=== PATIENT | female | born 1965 | race Caucasian/White ===

== ENCOUNTER → 2016-04-15 | Day surgery (SDC) | payer OTHER ==
[~2016-04-15] VITALS: Ht 160 cm; Wt 136.1 kg
[~2016-04-15] MED LIST: IBUP-1114 PO; LEVO100T5 PO; LISI20TA3 PO; LR 1,000 ML IV SCH; MAGN30TA2 PO; METF500T PO; MULT1TAB10 PO; PROPOFOL 200 MG/20 ML VIAL As Ordered ONE; SIMV20TA2 PO; VITA50003 PO; [UNRECOGNIZED DRUG - CODE] PO
[2016-04-15 09:35] VITALS: BP 115/58
--- NOTE | 2016-04-18 07:24 | ROOR ---
Patient Name: Ree Mason Procedure Date: 04/15/2016 8:10 AM Date of : 1965 Age: 50 Gender: Female Note Status: Finalized Procedure: Colonoscopy Indications: Screening for colorectal malignant neoplasm Providers: Daron Castillo DO Referring MD: Caitlin Richey DO Requesting Provider: Medicines: Propofol per Anesthesia Complications: No immediate complications. Procedure: Pre-Anesthesia Assessment: - Prior to the procedure, a History and Physical was performed, and patient medications and allergies were reviewed. The patient is competent. The risks and benefits of the procedure and the sedation options and risks were discussed with the patient. All questions were answered and informed consent was obtained. Patient identification and proposed procedure were verified by the physician, the nurse, the traffic maintenance officer and the certified composites technician in the procedure room. Mental Status Examination: alert and oriented. Airway Examination: normal oropharyngeal airway and neck mobility. Respiratory Examination: clear to auscultation. CV Examination: normal. Prophylactic Antibiotics: The patient does not require prophylactic antibiotics. Prior Anticoagulants: The patient has taken no previous anticoagulant or antiplatelet agents. ASA Grade Assessment: III - A patient with severe systemic disease. After reviewing the risks and benefits, the patient was deemed in satisfactory condition to undergo the procedure. The anesthesia plan was to use monitored anesthesia care (MAC). Immediately prior to administration of medications, the patient was re-assessed for adequacy to receive sedatives. The heart rate, respiratory rate, oxygen saturations, blood pressure, adequacy of pulmonary ventilation, and response to care were monitored throughout the procedure. The physical status of the patient was re-assessed after the procedure. The Colonoscope was introduced through the anus and advanced to the cecum, identified by the appendiceal orifice, ileocecal valve and palpation. The colonoscopy was performed without difficulty. The patient tolerated the procedure well. Findings: The entire examined colon appeared normal on direct and retroflexion views. Impression: - The entire examined colon is normal on direct and retroflexion views. - No specimens collected. Recommendation: - Patient has a contact number available for emergencies. The signs and symptoms of potential delayed complications were discussed with the patient. Return to normal activities tomorrow. Written discharge instructions were provided to the patient. - Repeat colonoscopy in 5-10 years for screening purposes. - Return to my office PRN. Daron Castillo DO 04/15/2016 8:51:27 AM This report has been signed electronically. Number of Addenda: 0 Note Initiated On: 04/15/2016 8:10 AM Estimated Blood Loss: Estimated blood loss: none.
== END ==
LOC: M SDC 07:10
PROVIDERS: ATTEND Surgery
DX: Z12.11 Encounter for screening for malignant neoplasm of colon (principal); I10 Essential (primary) hypertension; E11.9 Type 2 diabetes mellitus without complications; E78.00 Pure hypercholesterolemia, unspecified; E03.9 Hypothyroidism, unspecified; D69.3 Immune thrombocytopenic purpura; Z79.899 Other long term (current) drug therapy; Z79.84 Long term (current) use of oral hypoglycemic drugs

== ENCOUNTER → 2017-03-14 | Outpatient (CLI) | payer OTHER ==
[~2017-03-14] MED LIST changes: -LR 1,000 ML IV SCH; -METF500T PO; +METF500T13 PO; -PROPOFOL 200 MG/20 ML VIAL As Ordered ONE; +VITA1CAP40 PO; -VITA50003 PO
--- NOTE | 2017-03-14 10:56 | REPMRS ---
Patient History The patient states she had a clinical breast exam in 01/2017. Patient had first child at age 31. Family history of prostate cancer in paternal grandfather at age 75 and pancreatic cancer in paternal grandmother. Took hormonal contraceptives for 29 years. Taking unspecified hormones for 6 years. Digital Woman Screen Mammo: March 14, 2017 - Exam #: [id number] Bilateral CC and MLO view(s) were taken. Technologist: Beti Mills, Technologist Prior study comparison: February 02, 2016, digital woman screen mammo performed at [facility] to [facility]. August 03, 2014, digital woman screen mammo performed at [facility]. June 23, 2012, bilateral bilat screen digital mammo, performed at [facility] ([facility]). FINDINGS: The breast tissue is almost entirely fat. There has been no change in the appearance of the mammogram from the prior studies. There is no interval development of dominant mass, architectural distortion, or clustered microcalcification typical of malignancy. ASSESSMENT: BI-RADS/ACR category 1 mammogram. Negative. Recommendation Routine screening mammogram of both breasts in 1 year (for women over age 40). This mammogram was interpreted with the aid of an FDA-approved computer-aided dectection system. Electronically Signed By: Rober Mae MD 03/14/17 0494
== END ==
LOC: M WHC 09:20
PROVIDERS: ATTEND Obstetrics & Gynecology Gynecology
DX: Z12.31 Encounter for screening mammogram for malignant neoplasm of breast (principal); Z92.0 Personal history of contraception

== ENCOUNTER → 2017-03-20 | Outpatient (REF) | payer OTHER ==
[2017-03-20 16:43] LABS: REASON FOR REVIEW COMPREHENSIVE REVIEW; SLIDE REVIEW Report; SOURCE PERIPHERAL SMEAR
== END ==
LOC: M LAB REF 15:42
DX: D47.3 Essential (hemorrhagic) thrombocythemia (principal)
CPT/HCPCS: 81402

== ENCOUNTER → 2018-02-14 | Outpatient (CLI) | payer OTHER ==
[2018-02-16 10:18] LABS: LUTEINIZING HORMONE 7.3 mIU/mL
[2018-02-16 10:18] LABS: FOLLICLE STIMULATING HORMONE 15.8 mIU/mL
== END ==
LOC: M LAB 10:37
DX: E66.9 Obesity, unspecified (principal)
CPT/HCPCS: 83001

== ENCOUNTER → 2018-03-18 | Outpatient (CLI) | payer OTHER ==
[~2018-03-18] MED LIST changes: +CALTCHW5 PO; +CALTTAB6 PO; +FISH1000 PO; +FISH120016 PO; +IBUP-1022 PO; +MAGN400C PO; +MAGN400T2 PO; +NORCOTAB PO; +VITA10006 PO; -VITA1CAP40 PO; +VITA50005 PO; +VITMTA PO
--- NOTE | 2018-03-18 14:55 | REPMRS ---
Patient History The patient states she had a clinical breast exam in 02/08 Patient had first child at age 31. Family history of prostate cancer at age 75 in paternal grandfather, pancreatic cancer in paternal grandmother. Taking hormonal contraceptives for 30 years. Took unspecified hormones for 6 years. Digital Woman Screen Mammo: March 18, 2018 - Exam #: [id number] Bilateral CC and MLO view(s) were taken. Technologist: Imelda Ward, Technologist Prior study comparison: March 14, 2017, digital woman screen mammo performed at [facility]. February 02, 2016, digital woman screen mammo performed at [facility]. August 03, 2014, digital woman screen mammo performed at [facility]. FINDINGS: There are scattered fibroglandular densities. There has been no change in the appearance of the mammogram from the prior studies. There is a mild amount of scattered fibroglandular density which is fairly symmetric. There is no interval development of dominant mass, architectural distortion, or clustered microcalcification suggestive of malignancy. 3-D tomosynthesis shows no additional findings. Assessment: BI-RADS/ACR category 1 mammogram. Negative. Recommendation Routine screening mammogram of both breasts in 1 year (for women over age 40). This patient's Lifetime Breast Cancer RIsk is estimated at 11.6 %. This mammogram was interpreted with the aid of an FDA-approved computer-aided dectection system. Electronically Signed By: Rober Mae MD 03/18/18 [id number]
== END ==
LOC: M WHC 13:07
PROVIDERS: ATTEND Obstetrics & Gynecology Gynecology
DX: Z12.31 Encounter for screening mammogram for malignant neoplasm of breast (principal); Z80.0 Family history of malignant neoplasm of digestive organs; Z80.42 Family history of malignant neoplasm of prostate

== ENCOUNTER 2018-03-26 18:07 | Inpatient (IN) | payer OTHER ==
[~2018-03-26] VITALS: Ht 160 cm; Wt 134.1 kg
[~2018-03-26 18:07] MED LIST changes: -CALTTAB6 PO; -FISH1000 PO; -IBUP-1022 PO; -MAGN400T2 PO; -NORCOTAB PO; -VITA10006 PO; -VITMTA PO
[2018-03-26] MEDS ORDERED: ONDANSETRON 4MG/2ML VIAL (J2405) IV ONE (19:30)
[2018-03-26] MEDS ORDERED: NS 1,000 ML IV ONE (19:30)
[2018-03-26 20:29] LABS: BASO # 0.1 10^3/uL (0.0-0.2); BASO % 0.3 % (0.0-1.0); EOS % 0.2 % (0.0-3.0); HEMATOCRIT 45.3 % (36.0-47.0); HEMOGLOBIN 15.3 g/dl (12.0-15.5); LYMPH # 1.2 10^3/uL (1.5-4.5); LYMPH % 6.7 % (24.0-44.0); MEAN CORPUSCULAR HEMOGLOBIN 27.5 pg (27.0-33.0); MEAN CORPUSCULAR HGB CONC 33.8 g/dl (32.0-36.5); MEAN CORPUSCULAR VOLUME 81.5 fl (80.0-96.0); MONO # 0.9 10^3/uL (0.0-0.8); MONO % 4.8 % (0.0-5.0); NEUTROPHILS # 15.9 10^3/uL (1.8-7.7); NEUTROPHILS % 87.7 % (36.0-66.0); RED BLOOD COUNT 5.56 10^6/uL (4.00-5.40)
[2018-03-26 20:31] LABS: PLTBLUE- EDTA FREE CALC 293 K/mm3 (172-450)
[2018-03-26] MEDS: MORPHINE 2 MG/ML 1ML SYRINGE (J2270) IV PRN ×2 (20:31→22:58)
[2018-03-26 20:35] LABS: WHITE BLOOD COUNT 18.1 10^3/uL (4.0-10.0)
[2018-03-26 20:36] LABS: PLTBLUE- EDTA FREE MACHINE 266 10^3/uL (172-450)
[2018-03-26 20:57] LABS: ALBUMIN 3.1 GM/DL (3.2-5.2); ALT/SGPT 31 U/L (12-78); BILIRUBIN,DIRECT 0.2 MG/DL (0.0-0.2); BILIRUBIN,TOTAL 0.6 MG/DL (0.2-1.0); BLOOD UREA NITROGEN 6 MG/DL (7-18); CALCIUM LEVEL 8.6 MG/DL (8.5-10.1); CARBON DIOXIDE LEVEL 29 MEQ/L (21-32); CHLORIDE LEVEL 98 MEQ/L (98-107); CREATININE FOR GFR 0.68 MG/DL (0.55-1.30); GLOMERULAR FILTRATION RATE > 60.0 (>51); GLUCOSE, FASTING 122 MG/DL (70-100); POTASSIUM SERUM 3.5 MEQ/L (3.5-5.1); SODIUM LEVEL 136 MEQ/L (136-145); TOTAL PROTEIN 7.8 GM/DL (6.4-8.2)
[2018-03-26] MEDS ORDERED: ISOVUE-370 76% 100ML VIAL (Q9967) As Ordered ONE (20:59)
--- NOTE | 2018-03-26 22:42 | REPVR ---
EXAM: CT Abdomen and Pelvis With Contrast EXAM DATE/TIME: 03/26/18 (9:10pm) CLINICAL HISTORY: 52 year old female. Known incisional hernia, with worsening pain. Possible incarceration. TECHNIQUE: Axial computed tomography images of the abdomen and pelvis with intravenous contrast. All CT scans at this facility use at least one of these dose optimization techniques: automated exposure control; mA and/or kV adjustment per patient size (includes targeted exams where dose is matched to clinical indication); or iterative reconstruction. Coronal and sagittal reformatted images were created and reviewed. CONTRAST: 100 ml of Isovue 370 administered intravenously COMPARISON: No relevant prior studies available FINDINGS: Lower thorax: No acute findings. No pleural effusions. ABDOMEN: Liver: Normal. No solid mass. Gallbladder and bile ducts: Normal. No calcified stones. No ductal dilatation. Pancreas: Normal. No ductal dilatation. Spleen: Most likely S/P splenectomy. This needs correlation. Adrenals: Normal. No mass. Kidneys and ureters: Normal. No hydronephrosis. Stomach and bowel: Previous ventral hernia repair, with post-operative changes. Incisional hernia, in the anterior abdominal wall. The hernia sac contains inflamed fat and a segment of thickened, nondistended transverse colon. More proximal colon (right colon and proximal transverse colon) is distended, filled with fecal debris and air. Distal colonic loops are decompressed. Mild inflammatory changes are noted adjacent to the distended transverse colon, close to the hernia site. Appendix: Most likely S/P appendectomy. PELVIS: Bladder: Distended urinary bladder. No stones nor mass. Reproductive: Enlarged, bulky uterus (probable fibroid uterus). ABDOMEN and PELVIS: Intraperitoneal space: Normal. No free air. No significant fluid collection. Bones/joints: No acute fracture nor dislocation. Soft tissues: Unremarkable. Vasculature: Normal. No abdominal aortic aneurysm. Lymph nodes: Normal. No enlarged lymph nodes. IMPRESSION: Colonic obstruction (at the mid transverse colon level), secondary due to an incisional hernia, which contains a thickened, inflamed segment of mid transverse colon. Incarceration is suspected. Surgical consultation and close follow-up are suggested. No abscess. No free air. Probable previous appendectomy and splenectomy. Probable bulky, fibroid uterus. Electronically signed by: Isidra Mckeon On 03/26/2018 22:42:03 PM
[2018-03-26] MEDS ORDERED: NS 1,000 ML IV SCH (23:00)
[2018-03-27] VITALS (10 sets, daily range): BP systolic 112–140; BP diastolic 56–76
[2018-03-27] MEDS ORDERED: MORPHINE 4 MG/ML 1ML VIAL/SYRINGE (J2270) IV PRN ×2
--- NOTE | 2018-03-27 00:05 | REP ---
Clinical: Preoperative assessment . Comparison: None . Findings: The mediastinum and cardiac silhouette are stable and within normal limits for portable technique. The lung holloway are clear without acute consolidation, effusion, or pneumothorax. Skeletal structures are intact. Impression: No acute cardiopulmonary process appreciated. Electronically Signed by Hector Gates MD 03/26/2018 11:57 P
[2018-03-27] MEDS ORDERED: BUPIVACAINE HCL 0.25% 30 ML VIAL As Ordered ONE (00:06)
[2018-03-27] MEDS ORDERED: MAGN400T2 PO (00:12)
[2018-03-27] MEDS ORDERED: FISH1000 PO (00:12)
[2018-03-27] MEDS ORDERED: VITMTA PO (00:12)
[2018-03-27] MEDS ORDERED: CALTTAB6 PO (00:12)
[2018-03-27] MEDS ORDERED: VITA10006 PO (00:13)
[2018-03-27] MEDS ORDERED: ceFAZolin 2 GM/D5W 50 ML IV BAG (J0690 PER 500MG) As Ordered ONE (00:29)
[2018-03-27] MEDS ORDERED: MIDAZOLAM INJ 2 MG/2 ML VIAL (J2250) As Ordered ONE (01:23)
[2018-03-27] MEDS ORDERED: LIDOCAINE 2% INJ 100 MG/5 ML SDV (FOR ANES.) As Ordered ONE (01:23)
[2018-03-27] MEDS ORDERED: fentaNYL 250 MCG/5 ML INJECTION (J3010) As Ordered ONE (01:23)
[2018-03-27] MEDS ORDERED: PROPOFOL 200 MG/20 ML VIAL As Ordered ONE (01:23)
[2018-03-27] MEDS ORDERED: ROCURONIUM BROMIDE 50 MG/5 ML VIAL As Ordered ONE ×2 (01:23→01:48)
[2018-03-27] MEDS ORDERED: SUCCINYLCHOLINE 100 MG/5 ML SYRINGE (J0330) As Ordered ONE (01:33)
[2018-03-27] MEDS ORDERED: dexameTHASONE 4 MG/ML 1ML VIAL (J1100) As Ordered ONE (01:34)
[2018-03-27] MEDS ORDERED: ONDANSETRON 4MG/2ML VIAL (J2405) As Ordered ONE (02:09)
[2018-03-27] MEDS ORDERED: NEOSTIGMINE 10 MG/10 ML VIAL (J2710) As Ordered ONE (02:09)
[2018-03-27] MEDS ORDERED: GLYCOPYRROLATE INJ 0.2 MG/ML 2 ML VIAL As Ordered ONE (02:09)
[2018-03-27] MEDS ORDERED: KETOROLAC 60 MG/2 ML VIAL (J1885) As Ordered ONE (02:09)
[2018-03-27] MEDS ORDERED: BUPIVACAINE LIPOSOME/PF 1.3% 20ML VIAL (13.3MG/ML)(EXPAREL)(C9290 PER1MG) As Ordered ONE (02:18)
[2018-03-27] MEDS ORDERED: BUPIVACAINE HCL 0.25% 10 ML VIAL As Ordered ONE (02:54)
[2018-03-27] MEDS ORDERED: PHENYLephrine HCL 500 MCG/5 ML (100MCG/ML) SYRINGE (J2370) As Ordered ONE (03:22)
[2018-03-27] MEDS ORDERED: LR 1,000 ML IV SCH (04:00)
[2018-03-27] MEDS ORDERED: ONDANSETRON 4MG/2ML VIAL (J2405) IV PRN ×2 (04:00)
[2018-03-27] MEDS ORDERED: KETOROLAC 30 MG/ML VIAL (J1885) IV PRN (04:00)
[2018-03-27] MEDS ORDERED: PERCOCET 5MG/325MG TAB PO PRN (04:00)
[2018-03-27] MEDS ORDERED: fentaNYL 100 MCG/2 ML INJECTION (J3010) IV PRN (04:00)
[2018-03-27] MEDS ORDERED: METOCLOPRAMIDE INJ 10MG/2ML VIAL (J2765) IV PRN (04:00)
[2018-03-27] MEDS ORDERED: METOCLOPRAMIDE INJ 10MG/2ML VIAL (J2765) As Ordered ONE (04:09)
[2018-03-27] MEDS: LR 1,000 ML IV SCH ×2 (05:12→12:29)
[2018-03-27] MEDS: LEVOTHYROXINE 100MCG TABLET (0.1MG) PO SCH (06:09)
[2018-03-27] MEDS: hydroCHLOROthiazide 25 MG TAB PO SCH (09:11)
[2018-03-27] MEDS: LISINOPRIL 20 MG TAB PO SCH (09:11)
--- NOTE | 2018-03-27 09:25 | ECGEPIP ---
Stationary ECG Study [facility] - ED Test Date: 2018-03-26 Pat Name: DARIN RIGGINS Department: Room: - Gender: F Cable Installer: ronald : 1965 Requested By: JULIO CESAR ECKERT Order Number: [id number] Reading MD: Marilou Saini Measurements Intervals [place] Rate: 89 P: 52 MO: 149 QRS: 12 QRSD: 88 T: 11 QT: 365 QTc: 444 Interpretive Statements SINUS RHYTHM WITH SINUS ARRHYTHMIA MODERATE ST DEPRESSION NO PRIOR FOR COMPARISON Electronically Signed On 03-27-2018 9:25:33 EST by Marilou Saini
[2018-03-27] MEDS: ACETAMINOPHEN TAB 650MG DOSE (2X325MG) PO PRN ×2 (14:33→19:58)
[2018-03-27] MEDS ORDERED: SLF 3 ML SYR IV PRN (14:45)
[2018-03-27] MEDS ORDERED: SIMVASTATIN 20 MG TAB PO SCH (21:00)
[2018-03-27] MEDS ORDERED: MULTIVITAMINS/MINERALS THERAP 1 TAB PO SCH (21:00)
--- NOTE | 2018-03-27 21:13 | IPN ---
DATE: 03/27/2018 HISTORY The patient was admitted late last night and underwent a laparoscopic repair of an incarcerated ventral incisional hernia with mesh. She had a portion of her transverse colon in the hernia with evidence for obstruction proximal to this. She was having significant crampy pains. Her hernia was repaired by closing the defect primarily and placing a 12 cm Parietex patch laparoscopically. We finished at about 4 o'clock in the morning today. The patient has been doing well. She did have Exparel injected at the time of surgery. She has been taking only Tylenol for pain and tolerating liquids well so she was advanced to a regular diet late this afternoon. Vital signs: Show that she has been afebrile with a pulse in the 70s to low 90s. Her blood pressure is good with a normal room air oxygen saturation. Intake and output shows that she has had 4400 in total today with 1450 out. PHYSICAL EXAMINATION The patient is sitting up in the chair at the bedside. She appears fairly comfortable. Skin: Is warm and dry. Heart exam shows a regular rate and rhythm. The lungs are clear. The abdomen shows fairly active bowel sounds. She has no undue tenderness. The patient has no new labs at this time. IMPRESSION The patient is doing very well now approximately 12 hours postop from her emergent laparoscopic repair of her incarcerated hernia. She has had some flatus but no bowel movement yet. She is taking liquids well and has had a couple pieces of toast. PLAN The patient will be continued on a regular diet. She was encouraged to be up ambulatory. I would anticipate that she would be ready for discharge in the next day or two at the most. BALBINA
[2018-03-27] MEDS: SLF 3 ML SYR IV SCH (21:39)
[2018-03-27] MEDS: NORCO, ANEXSIA 5/325MG TABLET (HYDROcodone/ACETAMINOPHEN) PO PRN (23:47)
[2018-03-28] VITALS: BP 121/59
[2018-03-28 04:00] VITALS: BP 122/57
[2018-03-28] MEDS: LEVOTHYROXINE 100MCG TABLET (0.1MG) PO SCH (06:24)
[2018-03-28] MEDS: SLF 3 ML SYR IV SCH (06:24)
[2018-03-28] MEDS: NORCO, ANEXSIA 5/325MG TABLET (HYDROcodone/ACETAMINOPHEN) PO PRN ×2 (06:28→10:49)
[2018-03-28 08:00] VITALS: BP 130/67
[2018-03-28 08:41] VITALS: BP 130/67
[2018-03-28] MEDS: LISINOPRIL 20 MG TAB PO SCH (08:41)
[2018-03-28] MEDS: hydroCHLOROthiazide 25 MG TAB PO SCH (08:41)
[2018-03-28] MEDS ORDERED: IBUP-1022 PO (09:45)
[2018-03-28] MEDS ORDERED: NORCOTAB PO (09:45)
[2018-03-28] MEDS: ACETAMINOPHEN TAB 650MG DOSE (2X325MG) PO PRN (10:48)
--- NOTE | 2018-03-29 15:19 | RO ---
DATE OF SURGERY: 03/27/2018 PREOPERATIVE DIAGNOSES: Incarcerated ventral incisional hernia with transverse colon obstruction. POSTOPERATIVE DIAGNOSES: Incarcerated ventral incisional hernia with transverse colon obstruction secondary to extensive adhesions. PROCEDURE PERFORMED: Laparoscopy with lysis of adhesions and reduction of incarcerated hernia and repair of incisional hernia with 12 cm Parietex patch. SURGEON: Dr. Julio Cesar Garcia CORPORATE LEGAL INTERN: ANESTHESIA: General. INDICATIONS FOR THE PROCEDURE: Patient is a 52-year-old woman who has undergone several prior abdominal procedures. She has had an appendectomy. 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 She has had a hernia repair along the midline near the umbilicus repaired with some externally applied mesh. She presented to the emergency department on 03/26/2018 with a 2-day history of worsening abdominal pain with some cramping and some nausea and vomiting. A CT scan revealed a portion of her transverse colon incarcerated within her hernia with evidence for an obstruction proximally. She is now for a laparoscopic repair of her incarcerated ventral incisional hernia. DESCRIPTION OF PROCEDURE: Operative procedure: Patient was taken to the operating room on 03/27/2018. She was placed supine on the operating table. She was placed under general endotracheal anesthesia. The patient's abdomen was prepped and draped in a sterile fashion. Initial entry into the abdomen was in the left midabdomen. 0.25% Marcaine was infiltrated at the trocar sites as needed. A short transverse incision was made at about the level of the umbilicus, and a Veress needle was inserted. After positive hanging drop test, the abdomen was inflated with carbon dioxide gas. A 5-mm port was placed over a 5 mm scope and this was advanced through the abdominal wall without difficulty. Initial inspection showed multiple adhesions of the omentum to the anterior abdominal wall extending from the right upper quadrant down along the midline and the right side of the abdomen toward the lower abdomen. Many of these were just filmy, though they seemed more involved and dense in the right midabdomen. A second 5 mm trocar was placed higher up in the left upper quadrant, and a third was placed in the left lower quadrant. Using graspers and the Harmonic scalpel, the adhesions of the omentum were peeled away from the abdominal wall extensively beginning in the upper abdomen and working inferiorly. At the umbilicus area, the patient was found to have tissue adherent up into a fascial defect slightly to the right of the midline. As this area was dissected it was clear that there was fairly dense scarring of the transverse colon to the anterior abdominal wall in this area, but the colon had apparently reduced from within the hernia at or after the patient was brought to the operating room. The scar tissue was peeled away from the abdominal wall, and the dissection was carried inferiorly freeing additional adhesions below this level from the anterior abdominal wall. A broad area was cleared around the defect. The defect was found to measure approximately 4-5 cm maximally. Inspection of the transverse colon showed that the proximal portion was somewhat dilated and distended, and the mid and distal portions were initially decompressed, but once the colon had been reduced, there appeared to be some flow of material into this area as well. A short longitudinal incision was made over the fascial defect. This was deepened through the subcutaneous tissues to the level of the fascia. A moderately large hernia sac was identified which was dissected free from surrounding subcutaneous tissues down to the fascia and this hernia sac was then excised and sent for permanent pathology. I would note that a portion of the omentum which had been peeled away from the abdominal wall appeared to have been devascularized, so this was completely dissected and set aside for removal. Once the hernia sac had been removed, the omentum was delivered through the fascial defect and removed and sent as a second specimen called portion of the omentum. The fascial edges were trimmed slightly to healthy tissue. Hemostasis was assured with cautery. A 12 cm Parietex patch was selected. This was marked along the midline. A #1-0 Ethibond suture was placed at the midpoint of the fascial defect approximating this longitudinally, and as this suture was placed a small bite was taken of the center of the Parietex mesh. The mesh was then reduced into the abdomen with the nonadherent side facing the bowel and the suture was tied down. The remainder of the fascial defect was closed with additional sutures of #1-0 Ethibond. The abdomen was then reinflated with carbon dioxide but only to a pressure of 8 mmHg. The laparoscope was again inspected. The mesh was flattened on the anterior abdominal wall and then tacked in place with a Securestrap tacking devices. A total of 50 Securestrap devices were used to hold the mesh. These were placed circumferentially around the outer edge of the mesh as well as along the midline and with multiple tacks also holding the mesh diffusely to the anterior abdominal wall. There was no significant bleeding identified. The final application looked excellent. 20 mL of Exparel were mixed with 20 mL of 0.25% Marcaine, and this was infiltrated widely into the anterior abdominal wall over the area of the mesh placement and along the trocar sites. Final inspection revealed no bleeding. The abdomen was deflated through the trocar sites, and these were then removed. The incisions were all closed. The longer incision was closed with some chromic sutures to close the subcutaneous tissues, and all the skin edges were approximated with buried #5-0 Vicryl and Steri-Strips. Light dressings were applied to all the incisions. The patient tolerated procedure well without apparent complication. She was awakened in the operating room, extubated, and moved to the recovery room in stable condition.
--- NOTE | 2018-04-23 20:50 | DSES ---
DATE OF ADMISSION: 03/27/2018 DATE OF DISCHARGE: 03/28/2018 ADMITTING DIAGNOSIS: Incarcerated incisional hernia with colonic obstruction. HISTORY OF THE PRESENT ILLNESS: The patient is a 52-year-old woman with a known incisional hernia near the umbilicus. She presented to the emergency department with 2 days of worsening abdominal pain. A CT scan was performed which showed some colon entrapped in her ventral hernia with evidence for obstruction. She was admitted for laparoscopic or possible open surgery to repair her incarcerated hernia with colonic obstruction. HOSPITAL COURSE: Patient was admitted actually in the early childhood education coordinator of 03/27/2018. She was taken to the operating room directly where she underwent laparoscopy with lysis of adhesions and reduction of her incarcerated hernia and release of her colonic obstruction with repair of her incisional hernia with a 12 cm Parietex patch. She tolerated the surgery quite well. Exparel had been injected at the time of surgery and this likely reduced her level of postoperative discomfort. She had some flatus but no bowel movement noted on the 4th. She was taking liquids well and she was advanced to a regular diet. She continued to make good progress and was discharged home on 03/28/2018. FINAL DIAGNOSES: 1. Incarcerated ventral incisional hernia with colonic obstruction. 2. Hypothyroidism. 3. Hypertension. 4. Diabetes mellitus type 2. 5. 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 6. Morbid obesity. PROCEDURE PERFORMED: Laparoscopy with lysis of adhesions and release of colonic obstruction with repair of incisional hernia with a 12 cm Parietex patch. DISPOSITION: Patient was discharged home on 03/28/2018. She was taking a regular diet. She was to followup in my office in 2 weeks. She was advised to avoid any heavy lifting or strenuous activity for 2 weeks. She could shower starting 03/29/2018. She was provided a prescription for [place] to take as needed and also could take ibuprofen as needed. She was otherwise to resume her usual medications. She was to call for any problems.
== END 2018-03-28 12:40 | disposition home or self-care (01) | DRG 354 ==
LOC: M ED 18:07 → M ED INP 23:51 → M PED 03-27 04:45
PROVIDERS: ADMIT Surgery; ATTEND Surgery
PROC: 0KNK4ZZ Release Right Abdomen Muscle, Percutaneous Endoscopic Approach (ICD-10-PCS; 2018-03-27)
PROC: 0DBU4ZZ Excision of Omentum, Percutaneous Endoscopic Approach (ICD-10-PCS; 2018-03-27)
PROC: 0WUF4JZ Supplement Abdominal Wall with Synthetic Substitute, Percutaneous Endoscopic Approach (ICD-10-PCS; principal; 2018-03-27 00:30)
DX: K43.6 Other and unspecified ventral hernia with obstruction, without gangrene (principal); Z68.43 Body mass index [BMI] 50.0-59.9, adult; E03.9 Hypothyroidism, unspecified; I10 Essential (primary) hypertension; E11.9 Type 2 diabetes mellitus without complications; E66.01 Morbid (severe) obesity due to excess calories

== ENCOUNTER → 2019-03-25 | Outpatient (CLI) | payer BC, OTHER ==
[~2019-03-25] MED LIST changes: +AMOX500T PO; +AZO1CAP PO; +C-101TAB3 PO; +CALTTAB6 PO; +FISH1000 PO; +HYDR-3715 PO; +IBUP-1022 PO; +LISI20TA20 PO; -LISI20TA3 PO; +MAGN400T2 PO; -SIMV20TA2 PO; +SIMV20TA22 PO; +TRIV1TAB2 PO; +VITA10006 PO; +VITMTA PO; -[UNRECOGNIZED DRUG - CODE] PO
--- NOTE | 2019-03-25 15:26 | REPMRS ---
Patient History The patient states she had a clinical breast exam in 2018. Family history of prostate cancer at age 75 in paternal grandfather, pancreatic cancer in paternal grandmother. Taking hormonal contraceptives for 30 years. Took unspecified hormones for 6 years. Patient had a uterine ablation 2010. Digital Woman Screen Mammo: March 25, 2019 - Exam #: [id number] Bilateral CC and MLO view(s) were taken. Technologist: Esha Giraldo, Technologist Prior study comparison: March 18, 2018, bilateral digital woman screen mammo performed at [facility]. March 14, 2017, digital woman screen mammo performed at [facility]. February 02, 2016, digital woman screen mammo performed at [facility]. FINDINGS: There are scattered fibroglandular densities. There has been no change in the appearance of the mammogram from the prior studies. There is a mild amount of scattered fibroglandular density which is fairly symmetric. There is no interval development of dominant mass, architectural distortion, or grouped microcalcification suggestive of malignancy. 3-D tomosynthesis shows no additional findings. Assessment: BI-RADS/ACR category 1 mammogram. Negative Mammogram. Recommendation Routine screening mammogram of both breasts in 1 year (for women over age 40). This patient's Lifetime Breast Cancer Risk is estimated at 11.4 %. This mammogram was interpreted with the aid of an FDA-approved computer-aided dectection system. Electronically Signed By: Rober Mae MD 03/25/19 [id number]
== END ==
LOC: M WHC 13:50
PROVIDERS: ATTEND Obstetrics & Gynecology Gynecology
DX: Z12.31 Encounter for screening mammogram for malignant neoplasm of breast (principal)

== ENCOUNTER → 2020-03-29 | Outpatient (CLI) | payer BC ==
[~2020-03-29] MED LIST changes: +CENT1TAB PO; +PNEU0.5I IM; +ZINC1TAB2 PO; +[UNRECOGNIZED DRUG - CODE] IM
--- NOTE | 2020-03-29 17:15 | REPMRS ---
Patient History The patient states she had a clinical breast exam in 03/2019 Patient is postmenopausal and had first child at age 31. Family history of prostate cancer at age 75 in paternal grandfather, pancreatic cancer in paternal grandmother. Took hormonal contraceptives for 30 years. Took unspecified hormones for 6 years. 3D TOMOSYNTHESIS WAS PERFORMED. [facility] lifetime risk for breast cancer is 12.3%. Volpara breast density a. Digital Woman Screen Mammo: March 29, 2020 - Exam #: [id number] Bilateral CC and MLO view(s) were taken. Technologist: Imelda Ward, Technologist Prior study comparison: March 25, 2019, bilateral digital woman screen mammo performed at [facility]. March 18, 2018, bilateral digital woman screen mammo performed at [facility]. FINDINGS: There are scattered fibroglandular densities. There has been no change in the appearance of the mammogram from the prior studies. There is a mild amount of residual fibroglandular tissue which is fairly symmetric. There is no interval development of dominant mass, architectural distortion, or clustered microcalcification suggestive of malignancy. Assessment: BI-RADS/ACR category 1 mammogram. Negative Mammogram. Recommendation Routine screening mammogram in 1 year (for women over age 40). This mammogram was interpreted with the aid of an FDA-approved computer-aided dectection system. Electronically Signed By: Daron Ferrara MD 03/29/20 [id number]
== END ==
LOC: M WHC 16:00
PROVIDERS: ATTEND Obstetrics & Gynecology
DX: Z12.31 Encounter for screening mammogram for malignant neoplasm of breast (principal); Z92.0 Personal history of contraception

== ENCOUNTER → 2021-05-14 | Outpatient (CLI) | payer BC ==
[~2021-05-14] MED LIST changes: -LISI20TA20 PO; +LISI20TA37 PO
== END ==
LOC: M WHC 10:08
PROVIDERS: ATTEND Obstetrics & Gynecology
DX: Z12.31 Encounter for screening mammogram for malignant neoplasm of breast (principal)

== ENCOUNTER → 2022-05-15 | Outpatient (CLI) | payer BC ==
[~2022-05-15] MED LIST changes: +[UNRECOGNIZED DRUG - OTHER]
== END ==
LOC: M WHC 13:27
PROVIDERS: ATTEND Obstetrics & Gynecology
DX: Z12.31 Encounter for screening mammogram for malignant neoplasm of breast (principal)

== ENCOUNTER → 2023-02-28 | Outpatient (CLI) | payer BC ==
[~2023-02-28] MED LIST changes: +AZIT500T5 PO
== END ==
LOC: M RAD 16:18
PROVIDERS: ATTEND Internal Medicine Medical Oncology
DX: R05.3 Chronic cough (principal)

== ENCOUNTER → 2023-05-19 | Outpatient (CLI) | payer BC | LOC: M WHC 16:33 | PROVIDERS: ATTEND Obstetrics & Gynecology | DX: Z12.31 Encounter for screening mammogram for malignant neoplasm of breast (principal) ==

== ENCOUNTER → 2024-07-13 | Outpatient (CLI) | payer BC ==
[~2024-07-13] MED LIST changes: +[UNRECOGNIZED DRUG - OTHER]; +[UNRECOGNIZED DRUG - OTHER]
== END ==
LOC: M WHC 11:50
PROVIDERS: ATTEND Obstetrics & Gynecology
DX: Z12.31 Encounter for screening mammogram for malignant neoplasm of breast (principal)